=== PATIENT | female | born 1955 | race Caucasian/White ===

== ENCOUNTER → 2020-12-22 | Outpatient (CLI) | payer OTHER ==
[~2020-12-22] MED LIST: CYCLOBENZAPRINE10 MG PO; HYDROCHLOROTHIA50 MG PO; HYDROCODON-ACE1 EAC6 PO; IBU800 MG PO; LORAZEPAM0.5 MG PO; VASOTEC 5 MG TAB5 MG PO
[2020-12-22 11:38] LABS: HEMOGLOBIN 15.3 gm/dl (12.3-15.3); RED BLOOD COUNT 5.08 M/UL (4.00-5.10); WHITE BLOOD COUNT 6.6 K/UL (4.5-11.0)
[2020-12-22 11:55] LABS: BUN/CREATININE RATIO 14 (0-10)
== END ==
LOC: OPSV2 09:30
PROVIDERS: Anesthesiology
DX: Z01.818 Encounter for other preprocedural examination (principal); D17.1 Benign lipomatous neoplasm of skin and subcutaneous tissue of trunk
CPT/HCPCS: 36415; 80048; 85027; 93005

== ENCOUNTER → 2020-12-26 | Day surgery (SDC) | payer OTHER | END | disposition home or self-care (01) | LOC: OR 06:30 | DX: D17.1 Benign lipomatous neoplasm of skin and subcutaneous tissue of trunk (principal); M79.7 Fibromyalgia; I10 Essential (primary) hypertension; F41.9 Anxiety disorder, unspecified; Z88.0 Allergy status to penicillin; Z88.2 Allergy status to sulfonamides; Z88.8 Allergy status to other drugs, medicaments and biological substances; Z79.891 Long term (current) use of opiate analgesic; Z79.1 Long term (current) use of non-steroidal anti-inflammatories (NSAID); Z79.899 Other long term (current) drug therapy | CPT/HCPCS: J1100; J2001; J2250; J2405; J2550; J2704; J3010; J7030; J7120 ==